=== PATIENT | female | born 1990 | race Two or more races ===

== ENCOUNTER 2021-02-02 09:30 | Emergency (ER) | payer MEDICAID ==
[~2021-02-02] VITALS: Ht 160 cm; Wt 137.4 kg
--- NOTE | 2021-02-02 09:54 | NUR ---
PT BROUGHT BACK TO ROOM VIA WHEELCHAIR. PT CO RIGHT KNEE PAIN X1 WEEK. PT DENIES ANY TRAUMA. NO SWELLING OR BRUISING NOTED TO RIGHT KNEE.
[2021-02-02] MEDS ORDERED: KETOROLAC 30 MG/1 ML ONE (10:15)
--- NOTE | 2021-02-02 10:30 | NUR ---
PT TO XRAY
[2021-02-02] MEDS ORDERED: KETOROLAC 30 MG/1 ML IM ONE (11:00)
--- NOTE | 2021-02-02 12:04 | NUR ---
PT RESTING COMFORTABLY IN [facility]. PT UP FOR RECHECK. CALL LIGHT WITHIN REACH.
[2021-02-02 12:23] VITALS: BP 181/113
--- NOTE | 2021-02-02 12:52 | NUR ---
DISCHARG INSTRUCTIONS REVIEWED WITH PT. ALL QUESTIONS ANSWERED AT THIS TIME.
== END 2021-02-02 12:54 | disposition home or self-care (01) ==
LOC: ED 11:36
DX: S83.012A Lateral subluxation of left patella, initial encounter (principal); M25.461 Effusion, right knee; I10 Essential (primary) hypertension; X58.XXXA Exposure to other specified factors, initial encounter; Y93.89 Activity, other specified; Y92.89 Other specified places as the place of occurrence of the external cause; Y99.8 Other external cause status
CPT/HCPCS: 73564; 96372; 99283; J1885